=== PATIENT | female | born 1960 | race Asian ===

== ENCOUNTER 2021-12-14 06:40 | Day surgery (SDC) | payer OTHER ==
[~2021-12-14] VITALS: Ht 157.5 cm; Wt 53.5 kg
[2021-12-14] MEDS ORDERED: MEPERIDINE 100 MG INJ. 100 MG/ML VIAL ONE (08:03)
[2021-12-14] MEDS ORDERED: MIDAZOLAM HCL 5 MG/5 ML VIAL ONE (08:04)
[2021-12-14 12:51] VITALS: BP_SYST 118
== END 2021-12-14 10:30 | disposition home or self-care (01) ==
LOC: SDS 06:40 → SMU 06:41 → SDS 10:30
PROVIDERS: ATTEND Internal Medicine Gastroenterology
DX: K62.5 Hemorrhage of anus and rectum (principal); K64.8 Other hemorrhoids; I10 Essential (primary) hypertension; E78.5 Hyperlipidemia, unspecified; Z20.822 Contact with and (suspected) exposure to COVID-19; Z79.899 Other long term (current) drug therapy
CPT/HCPCS: 36415; 45378; 99152; G0378; J2175; J2250; U0003